=== PATIENT | female | born 1980 | race Caucasian/White ===

== ENCOUNTER → 2017-04-12 | Outpatient (CLI) | payer BC ==
--- NOTE | 2017-04-12 15:07 | ECHOCARDIOGRAM REPORT ---
*NOTICE TO RECEIVING LIBERTARIAN AGENCY This information is strictly Confidential and protected under [place] law. [place] law prohibits you from making any further disclosure of this information unless further disclosure is expressly permitted by the written consent of the person to whom it pertains or is authorized by law. A general authorization for the release of medical or other information is not sufficient for this purpose. Hospital accepts no responsibility if the information is made available to any other person, INCLUDING THE PATIENT. Interpretation Summary * Name: ALAN NAPOLES Study Date: 04/12/2017 12:47 PM BP: 115/61 mmHg * Patient Location: [facility] HR: 57 * : 1980 (M/d/yyyy) Gender: Female Height: 70 in * Age: 36 yrs Ethnicity: CA Weight: 155 lb * Ordering Physician: Paul Ellsworth * Referring Physician: Paul Ellsworth * Performed By: Sheila Tamez RDCS * * Reason For Study: FAMILY HISTORY OF BICUSPID AORTIC VALVE * BSA: 1.9 m2 * -- Conclusions -- * 1. Normal left ventricular size and systolic function. EF 60-65%. No regional wall motion abnormalities. No left ventricular hypertrophy. No diastolic dysfunction. * 2. The aortic valve is trileaflet. * 3. Normal estimated right ventricular systolic pressure; RVSP 17 mmHg. * 4. No prior study available for comparison. Procedure Details * A complete two-dimensional transthoracic echocardiogram was performed (2D, M-mode, Doppler and color flow Doppler). Left Ventricle * Normal left ventricular size and systolic function. EF 60-65%. No regional wall motion abnormalities. No left ventricular hypertrophy. No diastolic dysfunction. Right Ventricle * The right ventricle is normal in size and function. * The right ventricular systolic function is normal as assessed by tricuspid annular plane systolic excursion (TAPSE) (normal >1.5 cm). Atria * The left atrial size is normal. * Right atrial size is normal. * There is no evidence of atrial septal defect, but resolution does not allow assessment for a patent foramen ovale. Mitral Valve * The mitral valve leaflets appear normal. There is no evidence of stenosis, fluttering, or prolapse. * There is trace mitral regurgitation. Tricuspid Valve * The tricuspid valve is normal in structure and function. * There is no tricuspid stenosis. * There is trace tricuspid regurgitation. Aortic Valve * The aortic valve is trileaflet. * The aortic valve is normal in structure and function. * No hemodynamically significant valvular aortic stenosis. * No aortic regurgitation is present. Pulmonic Valve * The pulmonary valve is inadequately visualized, but the Doppler data is adequate for interpretation. * There is no pulmonic valvular stenosis. * Trace pulmonic valvular regurgitation. Great Vessels * The aortic root is normal size. * Ascending aorta of normal dimension * Aortic arch of normal dimension. Pericardium/Pleural * There is no pericardial effusion. Great Vessels * Normal inferior vena cava size and collapsability with sniff indicates a normal right atrial pressure of 3 mmHg MMode 2D Measurements and Calculations IVSd 0.72 cm IVSs 1.3 cm LVIDd 4.6 cm LVIDs 3.0 cm LVPWd 0.93 cm LVPWs 1.4 cm IVS/LVPW 0.77 FS 35.5 % EDV(Teich) 97.6 ml ESV(Teich) 34.2 ml EF(Teich) 65.0 % EDV(cubed) 97.7 ml ESV(cubed) 26.2 ml EF(cubed) 73.2 % % IVS thick 75.5 % % LVPW thick 50.6 % LV mass(C)d 122.9 grams LV mass(C)dI 65.6 grams/m\S\2 LV mass(C)s 127.5 grams LV mass(C)sI 68.1 grams/m\S\2 CO(Teich) 3.5 l/min CI(Teich) 1.9 l/min/m\S\2 SV(Teich) 63.5 ml SI(Teich) 33.9 ml/m\S\2 CO(cubed) 3.9 l/min CI(cubed) 2.1 l/min/m\S\2 SV(cubed) 71.5 ml SI(cubed) 38.2 ml/m\S\2 Ao root diam 2.9 cm Ao root area 6.6 cm\S\2 ACS 1.9 cm LA dimension 3.3 cm asc Aorta Diam 2.7 cm LA/Ao 1.1 LVOT diam 2.0 cm LVOT area 3.1 cm\S\2 LVAd ap4 30.8 cm\S\2 LVLd ap4 9.3 cm EDV(MOD-sp4) 86.5 ml EDV(sp4-el) 106.2 ml LVAs ap4 15.0 cm\S\2 LVLs ap4 6.5 cm ESV(MOD-sp4) 29.9 ml ESV(sp4-el) 42.1 ml EF(MOD-sp4) 65.4 % EF(sp4-el) 60.4 % LVAd ap2 28.5 cm\S\2 LVLd ap2 8.5 cm EDV(MOD-sp2) 81.3 ml LVAs ap2 13.1 cm\S\2 LVLs ap2 5.7 cm ESV(MOD-sp2) 25.9 ml EF(MOD-sp2) 68.1 % CO(MOD-sp4) 3.1 l/min CI(MOD-sp4) 1.7 l/min/m\S\2 SV(MOD-sp4) 56.6 ml SI(MOD-sp4) 30.2 ml/m\S\2 CO(MOD-sp2) 3.0 l/min CI(MOD-sp2) 1.6 l/min/m\S\2 SV(MOD-sp2) 55.4 ml SI(MOD-sp2) 29.6 ml/m\S\2 CO(sp4-el) 3.5 l/min CI(sp4-el) 1.9 l/min/m\S\2 SV(sp4-el) 64.1 ml SI(sp4-el) 34.2 ml/m\S\2 Doppler Measurements and Calculations MV E max otto 93.6 cm/sec MV A max otto 83.9 cm/sec MV E/A 1.1 MV P1/2t max otto 113.2 cm/sec MV P1/2t 131.3 msec MVA(P1/2t) 1.7 cm\S\2 MV dec slope 252.5 cm/sec\S\2 MV dec time 0.30 sec Ao V2 max 167.8 cm/sec Ao max PG 11.3 mmHg Ao max PG (full) 3.7 mmHg Ao V2 mean 111.8 cm/sec Ao mean PG 5.6 mmHg Ao V2 VTI 33.5 cm MARCIAL(V,A) 2.5 cm\S\2 MARCIAL(V,D) 2.5 cm\S\2 LV V1 max PG 7.5 mmHg LV V1 max 137.1 cm/sec SV(Ao) 221.4 ml SI(Ao) 118.2 ml/m\S\2 PA V2 max 73.7 cm/sec PA max PG 2.2 mmHg PI max otto 130.2 cm/sec PI max PG 6.8 mmHg PI dec slope 67.2 cm/sec\S\2 PI P1/2t 567.2 msec TR max otto 190.0 cm/sec RVSP(TR) 17.4 mmHg RAP systole 3.0 mmHg
== END | disposition home or self-care (01) ==
LOC: C.CPL 12:32
PROVIDERS: ATTEND Family Medicine
DX: Z82.49 Family history of ischemic heart disease and other diseases of the circulatory system (principal)

== ENCOUNTER → 2018-01-08 | Outpatient (CLI) | payer OTHER ==
--- NOTE | 2018-01-09 15:54 | MAMMOGRAPHY REPORT ---
BILATERAL DIGITAL SCREENING MAMMOGRAM WITH CAD: 01/08/2018 CLINICAL HISTORY: Patient presents for routine screening. S/P bilateral augmentation. Baseline exam ination. TECHNIQUE: Bilateral CC and MLO views of the breasts with and without implant displacement views were obtained. Current study was also evaluated with a Computer Aided Detection (CAD) system. COMPARISON: No prior exams were available for comparison. BREAST COMPOSITION: There are scattered areas of fibroglandular density in both breasts. FINDINGS: There are bilateral subpectoral silicone implants. There are a few benign round and puncta te microcalcifications. No suspicious mass, architectural distortion or cluster of suspicious microc alcifications is seen. IMPRESSION: ACR BI-RADS CATEGORY 1: NEGATIVE 1. There is no mammographic evidence of malignancy. A 2 year screening mammogram is recommended. 2. If prior mammograms including pre-implant mammograms are obtained they will be reviewed and an ad dendum will be made to this report. The patient will receive written notification of the results. Approximately 10% of breast cancers are not detected with mammography. A negative mammographic report should not delay biopsy if a clinically suggestive mass is present. Rosaura Parks M.D. ay/:01/08/2018 15:28:27 [employer]oe Salesperson: Lizbet Ibarra M, [facility] letter sent: Normal 1/2 BI-RADS Code: ACR BI-RADS Category 1: Negative
== END | disposition home or self-care (01) ==
LOC: C.MAMM 13:53
PROVIDERS: ATTEND Obstetrics & Gynecology
DX: Z12.31 Encounter for screening mammogram for malignant neoplasm of breast (principal); Z98.82 Breast implant status